=== PATIENT | female | born 1965 | race Caucasian/White ===

== ENCOUNTER 2019-02-02 09:47 | Outpatient (CLI) | payer BC ==
--- NOTE | 2019-02-02 11:23 | RAD ---
PA AND LATERAL CHEST: HISTORY: Left-sided chest pain. FINDINGS: Heart size and mediastinum are within normal limits. Lungs are clear of infiltrates. No significant bony findings. IMPRESSION: No active intrathoracic disease. POS: [facility]
== END 2019-02-02 09:48 | disposition home or self-care (01) ==
LOC: SCSRAD 09:47
PROVIDERS: ATTEND Family Medicine
DX: R10.9 Unspecified abdominal pain (principal)
CPT/HCPCS: 71046

== ENCOUNTER 2019-10-29 10:04 | Day surgery (SDC) | payer BC ==
[2019-10-24 16:13] VITALS: BMI 25.0
[2019-10-24 17:15] LABS: Hemoglobin 13.4 g/dL (12.0-16.0); Mean Corpuscular HGB CONC 32.3 g/dL (32.0-36.0); Mean Corpuscular Hemoglobin 29.8 pg (27.0-31.0); Mean Corpuscular Volume 92.3 fL (78.0-98.0); Mean Platelet Volume 8.4 fL (7.4-10.4); Platelet Count 201 thou/uL (130-400); Red Blood Cell (RBC) Count 4.48 mill/uL (4.20-5.40); White Blood Cell (WBC) Count 6.7 thou/uL (4.8-10.8)
--- NOTE | 2019-10-25 12:12 | HP ---
She is set for surgery on October 29. HISTORY OF PRESENT ILLNESS: Ms. Mcqueen is a 54-year-old white female with history of previous hysterectomy, who has been having increasing issues with urinary incontinence. She describes loss of urine with typical Valsalva maneuvers such as coughing, sneezing, and has to wear a pad daily. She does also have some loss of urine associated with urgency. She reports that she has lost control of her urine awakening in the morning and also getting up from sitting. She does also report consistent loss of urine with coughing and sneezing. Her urinalysis was negative on our initial evaluation in my office visit in July. She denied any hematuria or any pelvic pain. PAST MEDICAL AND SURGICAL HISTORY: She has had an excision of a melanoma. She has had shoulder joint surgery. She has had an ablation of the heart for regular heart rate, resolved. Total hysterectomy for endometriosis in the past. She has acid reflux and osteoporosis. CURRENT MEDICATIONS: 1. Montelukast 10 mg daily. 2. Omeprazole 40 mg tablet daily. 3. Premarin 0.45 mg tablet daily. 4. Venlafaxine ER 150 mg daily. FAMILY HISTORY: Noncontributory. SOCIAL HISTORY: Nonsmoker. No excessive alcohol use. OB HISTORY: She had one spontaneous vaginal delivery and one uncomplicated. REVIEW OF SYSTEMS: As per HPI. ALLERGIES: ADHESIVE TAPE AND CODEINE. PHYSICAL EXAMINATION: VITAL SIGNS: Height 5 feet and 8 inches, weight 164 pounds, and BMI 24.9. Blood pressure 140/80, pulse 75 and regular, respiratory rate 18, and O2 saturation on room air 98%. HEENT: Within normal limits. CHEST: Clear to auscultation. HEART: Regular rate and rhythm. S1 and S2 heart sounds. No murmurs, rubs, or gallops. ABDOMEN: Soft, nontender, and nondistended with no palpable masses. PELVIC: External female genitalia had no lesions. Vagina had no lesions. There was no excessive vault prolapse or pelvic prolapse noted except for hypermobile UV angle of 45 degrees. There was a minimal cystocele that was reported. The bladder was nontender. There are no pelvic masses. The patient underwent formal urodynamic study in my office on 07/26/2019. At the time of the study, she had a postvoid residual of 50 to 60 mL. Her first sensation to void was at 109 mL, second sensation at 130 mL, and third at 590 mL. The patient leaked with a 215 mL with Valsalva and 317 mL with Valsalva. She was comfortable and was able to void 610 mL without difficulty. She did not have any obvious spontaneous detrusor contractions during this evaluation. ASSESSMENT: This is a 54-year-old white female with hysterectomy with some clinical history of mixed urinary incontinence with obvious genuine stress incontinence confirmed with leak on Valsalva with urodynamic testing. PLAN: To proceed with Advantage Fit TVT with cystoscopy. Risks and benefits of procedure have been discussed in detail. She is also aware that the urge incontinence may worsen initially after the surgery due to some of the irritative affects of the TVT procedure. This can be usually remedied with treatment with anticholinergic or antimuscarinic medications and may resolve spontaneously after postoperative recovery. She is scheduled for surgery on 10/29/2019. Job ID: [id number]
[2019-10-29] MEDS ORDERED: Dexamethasone 20 MG/5 ML VIAL ONE (10:12)
[2019-10-29] MEDS ORDERED: Lidocaine 1% PF 5 ML VIAL ONE (10:12)
[2019-10-29] MEDS ORDERED: PROPOFOL 200 MG/20 ML VIAL ONE (10:12)
[2019-10-29] MEDS ORDERED: Ondansetron PF 4 MG/2 ML Vial ONE (10:12)
[2019-10-29] MEDS ORDERED: ePHEDrine/0.9% NaCl/PF SYRINGE 50 mg/10 ml ONE (10:12)
[2019-10-29] MEDS ORDERED: diphenhydrAMINE 50 MG/ML VIAL ONE (10:12)
[2019-10-29] MEDS ORDERED: Ketorolac Tromethamine 30 MG/ML VIAL ONE (10:12)
[2019-10-29] MEDS ORDERED: Lidocaine 1% w/Epinephrine 1:100K 20 ML VIAL ONE (10:46)
[2019-10-29] MEDS ORDERED: Fentanyl 100 MCG/2 ML VIAL ONE (11:37)
[2019-10-29] MEDS ORDERED: Ondansetron HCl/PF 4 MG/2 ML Vial IVP PRN (12:11)
[2019-10-29] MEDS ORDERED: Promethazine HCl 25 MG/ML VIAL SLOW IVP PRN (12:11)
[2019-10-29] MEDS ORDERED: Meperidine HCl/PF 25 MG/ML VIAL SLOW IVP PRN (12:11)
[2019-10-29] MEDS ORDERED: HYDROmorphone 2 MG/ML VIAL SLOW IVP PRN (12:11)
[2019-10-29] MEDS ORDERED: HYDROcodone/Acetaminophen 5/325 mg Tablet ONE (15:05)
--- NOTE | 2019-10-29 20:44 | OP ---
DATE OF PROCEDURE: 10/29/2019 DIAGNOSES: A 54-year-old white female with prior hysterectomy with genuine stress incontinence. POSTOPERATIVE DIAGNOSES: A 54-year-old white female with prior hysterectomy with genuine stress incontinence. PROCEDURES PERFORMED: Advantage Fit TVT with cystoscopy. RESEARCH GREENHOUSE SUPERVISOR SURGEON: GLENN Alvarado ANESTHESIA: General with LMA. COMPLICATIONS: None. COUNTS: Correct x2. ANTIBIOTICS: 2 g Ancef. ESTIMATED BLOOD LOSS: 25 mL. FINDINGS: 1. Cystoscopic exam of bladder showed normal mucosa with no evidence of any trocar placement. 2. Bilateral ureteral orifices visualized with efflux from urine noted. DISPOSITION: Recovery room, then plan for voiding trial in Day Stay and if adequate, we will plan for discharge home. DESCRIPTION OF PROCEDURE: The patient previously received informed consent in regard to surgery. She was taken back to the operating room, where she received a general with LMA anesthesia. She was then placed in the dorsal lithotomy position with use of Yfn stirrups. At this time, she was prepped and draped in usual sterile fashion. Hobbs catheter was placed. I proceeded to ankit the trocar exit sites by finding the urethra just behind the symphysis pubis, the middle of this was marked and then 2 cm lateral on each side, both right and left. Then, I did hydrodissection of the retropubic space with 60 mL of sterile saline with a spinal needle. I then placed a weighted speculum in vagina. The mid urethra was palpated, and two Allis clamps were placed just superiorly and inferiorly to this. The vaginal mucosa in the periurethral area was infiltrated with 1% lidocaine with epinephrine. I then made a vertical midline incision in the mid urethra and vaginal mucosa region with a #15 blade. The edges of the vaginal mucosa were grasped with Allis clamps and then I proceeded to dissect submucosally with the Metzenbaum scissor into the space of Retzius bilaterally in the intersection between the inferior pubic ramus and symphysis. Once this had been dissected adequately, the Hobbs catheter was then removed and then a guide Hobbs catheter was placed. We then brought the legs down, where the knees were in the level of the axilla bilaterally. The bladder was deflected to opposite direction of the placement of the Advantage Fit TVT trocar. This was taken and placed through the previous dissected submucosal vaginal dissection on the patient's left side. The TVT trocar handle was dropped in line with the axilla and the trocar point, and was exited right at the previous marked spot, 2 cm lateral from the mid urethra under symphysis pubis. My assistant paralegal grasped the plastic end of the TVT mesh and then I backed the trocar out. Then, the bladder was deflected to the patient's left side as that we post the other end of the trocar mesh in exact same fashion. Again, the end of the plastic mesh was grasped with a Nitza clamp and I backed the trocar out. The Hobbs was removed, and a 70-degree cystoscope was placed through the urethra. The bladder was distended. The bladder was inspected with the previously mentioned findings with no evidence of any trocar placement, and bilateral ureteral orifices were visualized with efflux noted. The cystoscope was then removed, and a Hobbs catheter was replaced. We then snugged up the mesh ensuring that it was laid flat with no crinkles in it. A Luna scissor was placed in the mid urethra to avoid excessive tension on the TVT mesh. The plastic stay clip was trimmed cut with the suture scissors, and the plastic covering of the mesh was pulled out bilaterally of the trocar sites that were in the suprapubic region. The Luna scissor was then removed. The vaginal mucosa overlying the mid urethra was closed with running locking 2-0 Vicryl and then, the mesh was trimmed at the skin edge above and the trocar exit sites were closed with Dermabond. Hobbs catheter was draining clear urine. The patient was awakened from anesthesia and transferred to recovery room in stable condition. Job ID: [id number]
== END 2019-10-29 15:45 | disposition home or self-care (01) ==
LOC: SDC 10:04
PROVIDERS: ATTEND Obstetrics & Gynecology
PROC: 0TSD0ZZ Reposition Urethra, Open Approach (ICD-10-PCS; principal; 2019-10-29)
DX: N39.3 Stress incontinence (female) (male) (principal); K21.9 Gastro-esophageal reflux disease without esophagitis; M81.0 Age-related osteoporosis without current pathological fracture; Z79.899 Other long term (current) drug therapy; Z88.5 Allergy status to narcotic agent; Z91.013 Allergy to seafood; Z91.048 Other nonmedicinal substance allergy status; Z98.890 Other specified postprocedural states
CPT/HCPCS: 85027; 86850; 86900; 86901; C1781; J0690; J1100; J1200; J1885; J2001; J2405; J2704; J3010

== ENCOUNTER 2022-05-04 08:56 | Outpatient (CLI) | payer BC | END 2022-05-04 08:57 | disposition home or self-care (01) | LOC: BICMAMMO 08:56 | PROVIDERS: ATTEND Family Medicine | DX: Z13.820 Encounter for screening for osteoporosis (principal); E28.39 Other primary ovarian failure; M85.89 Other specified disorders of bone density and structure, multiple sites; Z78.0 Asymptomatic menopausal state | CPT/HCPCS: 77080 ==